=== PATIENT | female | born 1955 | race Caucasian/White ===

== ENCOUNTER 2017-02-06 13:04 | Inpatient (IN) | payer MEDICAID ==
[~2017-02-06] VITALS: Ht 165.1 cm; Wt 59.2 kg
[2017-02-06 14:11] LABS: Basophils # (auto) 0.1 uL; Basophils % (auto) 1.4 % (0.0-2.0); CONDITION Y; Eosinophils # (auto) 0.5 uL; Eosinophils % (auto) 6.9 % (0.0-7.0); Hematocrit 40.6 % (36.0-46.0); Hemoglobin 13.5 g/dL (12.2-16.2); Lymphocytes # (auto) 2.6 uL; Lymphocytes % (auto) 38.4 % (10.0-50.0); Mean Corpuscular Hemoglobin 28.2 pg (28.0-32.0); Mean Corpuscular Hgb Conc. 33.2 g/dL (32.0-36.0); Mean Corpuscular Volume 84.9 fL (80.0-100.0); Mean Platelet Volume 9.4 fL (7.4-10.4); Monocytes # (auto) 0.2 uL; Monocytes % (auto) 3.6 % (0.0-12.0); Neutrophils # (auto) 3.3 uL; Neutrophils % (auto) 49.7 % (37.0-80.0); Platelet Count (auto) 323 10^3/uL (140-450); Red Cell Distribution Width 14.3 % (11.6-16.0); White Blood Cell 6.7 10^3/uL (4.4-10.8)
[2017-02-06 14:40] LABS: Albumin 3.3 g/dL (3.4-5.0); BUN/Creatinine Ratio 18.9; Bilirubin, Total 0.2 mg/dL (0.2-1.0); Calcium 8.9 mg/dL (8.5-10.1); Magnesium 2.4 mg/dL (1.6-2.6); Potassium 3.7 mmol/L (3.5-5.1); Total Protein 6.8 g/dL (6.4-8.2)
[2017-02-06] MEDS ORDERED: ASPirin 81 mg TAB PO ONE (19:30)
[2017-02-06 21:23] LABS: B-Type Natriuretic Peptide 488.11 pg/mL (0-100)
[2017-02-06 21:24] LABS: Temperature: 23.3 C (20.0-25.0)
[2017-02-06 21:27] LABS: INR 0.93 (0.9-1.15); Partial Thromboplastin Time 24.3 sec (22.64-33.71); Prothrombin Time 10.1 sec (9.37-12.3)
[2017-02-06] MEDS ORDERED: FUROSEMIDE 20 MG/2 ML VIAL IV ONE (23:45)
[2017-02-07] MEDS ORDERED: METOPROLOL TARTRATE 1MG/1ML-5ML VIAL IV PRN (01:45)
[2017-02-07] MEDS ORDERED: TEMAZEPAM 15 MG CAP PO PRN (01:45)
[2017-02-07] MEDS ORDERED: ONDANSETRON HCL 4 MG/2 ML VIAL IV PRN (01:45)
[2017-02-07] MEDS ORDERED: HYDROcodone-ACET 5/325MG TAB PO PRN (01:45)
[2017-02-07] MEDS ORDERED: NITROGLYCERIN 0.4 MG SL TAB SL PRN (01:45)
[2017-02-07] MEDS ORDERED: MORPHINE SULF INJ 2 MG/ML SYRINGE 1ML IV PRN (01:45)
[2017-02-07] MEDS ORDERED: ACETAMINOPHEN 325 MG TAB PO PRN (01:45)
[2017-02-07] MEDS: ASPirin 81 mg TAB PO SCH (09:49)
[2017-02-07] MEDS ORDERED: ENOXAPARIN SOD 40 MG/0.4 ML SYRINGE SC SCH (10:00)
[2017-02-07 11:06] VITALS: BP 105/73
[2017-02-07 22:00] VITALS: BP 121/68
[2017-02-07] MEDS: RIVAROXABAN 20 MG TAB PO SCH (22:06)
[2017-02-07] MEDS: SOTALOL HCL 80 MG TAB PO SCH (22:06)
[2017-02-08] VITALS (7 sets, daily range): BP systolic 95–118; BP diastolic 56–70
[2017-02-08 05:38] LABS: Basophils # (auto) 0.1 uL; Basophils % (auto) 1.8 % (0.0-2.0); CONDITION Y; Eosinophils # (auto) 0.4 uL; Eosinophils % (auto) 8.1 % (0.0-7.0); Hematocrit 41.5 % (36.0-46.0); Hemoglobin 13.8 g/dL (12.2-16.2); Lymphocytes # (auto) 2.7 uL; Lymphocytes % (auto) 50.1 % (10.0-50.0); Mean Corpuscular Hemoglobin 28.5 pg (28.0-32.0); Mean Corpuscular Hgb Conc. 33.3 g/dL (32.0-36.0); Mean Corpuscular Volume 85.6 fL (80.0-100.0); Mean Platelet Volume 9.9 fL (7.4-10.4); Monocytes # (auto) 0.3 uL; Monocytes % (auto) 5.1 % (0.0-12.0); Neutrophils # (auto) 1.9 uL; Neutrophils % (auto) 34.9 % (37.0-80.0); Platelet Count (auto) 314 10^3/uL (140-450); Red Cell Distribution Width 13.9 % (11.6-16.0); White Blood Cell 5.4 10^3/uL (4.4-10.8)
[2017-02-08 05:58] LABS: Albumin 3.1 g/dL (3.4-5.0); BUN/Creatinine Ratio 27.2; Bilirubin, Total 0.3 mg/dL (0.2-1.0); Calcium 8.7 mg/dL (8.5-10.1); Potassium 3.5 mmol/L (3.5-5.1); Total Protein 6.6 g/dL (6.4-8.2)
[2017-02-08] MEDS: ASPirin 81 mg TAB PO SCH (10:19)
[2017-02-08] MEDS: SOTALOL HCL 80 MG TAB PO SCH ×2 (10:20→22:51)
[2017-02-08] MEDS: RIVAROXABAN 20 MG TAB PO SCH (18:12)
[2017-02-09 05:00] VITALS: BP 118/77
[2017-02-09 09:00] VITALS: BP 95/63
[2017-02-09] MEDS: SOTALOL HCL 80 MG TAB PO SCH (10:30)
[2017-02-09] MEDS: ASPirin 81 mg TAB PO SCH (10:30)
[2017-02-09 13:00] VITALS: BP 114/80
[2017-02-09] MEDS ORDERED: MIDAZOLAM HCL 5 MG/ML-1ML VIAL ONE (14:52)
[2017-02-09] MEDS ORDERED: MIDAZOLAM HCL 1MG/1ML-2 ML VIAL ONE (15:38)
[2017-02-09] MEDS ORDERED: FLUMAZENIL 0.1 MG/ML INJ 10ML MDV IV ONE (15:38)
[2017-02-09] MEDS ORDERED: fentaNYL CITRATE 100 MCG/2 ML VL ONE (15:38)
[2017-02-09 17:00] VITALS: BP 110/67
[2017-02-09] MEDS: RIVAROXABAN 20 MG TAB PO SCH (18:08)
[2017-02-09 20:29] VITALS: BP 115/73
[2017-02-10] MEDS ORDERED: SOTALOL HCL 80 MG TAB PO SCH (10:00)
[2017-02-10] MEDS ORDERED: MAGNESIUM OXIDE 400 MG TAB PO SCH (10:00)
== END 2017-02-09 21:25 | disposition home or self-care (01) | DRG 201 ==
LOC: ER 13:04 → TELE 13:05 → TELE-E-ADS 02-07 10:59 → TELE-WESTW 02-07 15:33
PROVIDERS: ADMIT Internal Medicine; ATTEND Internal Medicine
PROC: 5A2204Z Restoration of Cardiac Rhythm, Single (ICD-10-PCS; principal; 2017-02-09)
DX: I48.91 Unspecified atrial fibrillation (principal); I11.0 Hypertensive heart disease with heart failure; I50.9 Heart failure, unspecified; E73.9 Lactose intolerance, unspecified
CPT/HCPCS: 36415; 71020; 80053; 83735; 83880; 84443; 84484; 85025; 85379; 85610; 85730; 93005; 93306; 96374; J2250